=== PATIENT | male | born 1990 | race Caucasian/White ===

== ENCOUNTER → 2016-10-21 | Outpatient (CLI) | payer OTHER | END | disposition home or self-care (01) | LOC: C.LAB1850 09:48 | PROVIDERS: ATTEND Internal Medicine Infectious Disease | DX: Z20.6 Contact with and (suspected) exposure to human immunodeficiency virus [HIV] (principal) ==

== ENCOUNTER → 2016-10-21 | Outpatient (CLI) | payer OTHER ==
[2016-10-21 12:19] LABS: HEMATOCRIT 51.1 % (42-52); MEAN CELL VOLUME 82.4 fL (80-100); MEAN CORPUSCULAR HEMOGLOBIN 26.5 pg (25-34); MEAN CORPUSCULAR HGB CONC 32.1 g/dl (32-36); MEAN PLATELET VOLUME 10.4 fL (7.4-10.4); PLATELET COUNT 164 K/uL (130-400); WHITE BLOOD COUNT 6.07 K/uL (4.8-10.8)
[2016-10-21 12:25] LABS: BLOOD UREA NITROGEN 14 mg/dl (7-18); BUN/CREATININE RATIO 12.4 (10-20); CALCIUM 9.1 mg/dl (8.5-10.1); CARBON DIOXIDE 26 mmol/L (21-32); CHLORIDE 105 mmol/L (98-107); CHOLESTEROL 123 mg/dl (0-200); GLUCOSE 84 mg/dl (70-99); SODIUM 141 mmol/L (136-145)
[2016-10-21 12:36] LABS: CHOLESTEROL/HDL RATIO 4.9; HDL CHOLESTEROL 25 mg/dl; LDL CHOLESTEROL CALCULATED 43 mg/dl; TRIGLYCERIDES 273 mg/dl (0-150); VERY LOW DENSITY LIPOPROT CALC 55 mg/dl
== END | disposition home or self-care (01) ==
LOC: C.LABBFT 08:03
PROVIDERS: ATTEND Family Medicine
DX: I10 Essential (primary) hypertension (principal); Z13.220 Encounter for screening for lipoid disorders

== ENCOUNTER → 2016-11-24 | Outpatient (CLI) | payer OTHER ==
[2016-11-24 16:57] LABS: BASO % 0.3 %; BASO ABS # 0.02 K/uL (0-0.2); COMPLETE YES; EOS % 1.8 %; HEMATOCRIT 50.1 % (42-52); IG% 0.3 %; LYMPH % 37.6 %; LYMPH ABS # 2.54 K/uL (1.2-3.4); MEAN CORPUSCULAR HGB CONC 32.9 g/dl (32-36); MEAN PLATELET VOLUME 10.6 fL (7.4-10.4); MONO % 5.9 %; NEUT % 54.1 %; PLATELET COUNT 177 K/uL (130-400); RED BLOOD COUNT 6.11 M/uL (4.7-6.1); WHITE BLOOD COUNT 6.75 K/uL (4.8-10.8)
[2016-11-24 17:19] LABS: ALT/SGPT 50 U/L (12-78); AST/SGOT 21 U/L (15-37); BLOOD UREA NITROGEN 13 mg/dl (7-18); BUN/CREATININE RATIO 11.7 (10-20); CALCIUM 9.1 mg/dl (8.5-10.1); CARBON DIOXIDE 29 mmol/L (21-32); CHLORIDE 105 mmol/L (98-107); GLUCOSE 83 mg/dl (70-99); POTASSIUM 3.8 mmol/L (3.5-5.1); SODIUM 142 mmol/L (136-145)
[2016-11-24 17:22] LABS: ALB/GLOB RATIO 1.3 (0.9-2); ALKALINE PHOSPHATASE 53 U/L (45-117)
== END | disposition home or self-care (01) ==
LOC: C.LAB1850 16:02
PROVIDERS: ATTEND Internal Medicine Infectious Disease
DX: Z20.6 Contact with and (suspected) exposure to human immunodeficiency virus [HIV] (principal)